=== PATIENT | female | born 1935 | race Caucasian/White ===

== ENCOUNTER 2016-04-17 12:30 | Outpatient (RCR) | payer MEDICARE, BC ==
[~2016-04-17 12:30] MED LIST: ARICEPT23 MG PO; ASPIR-LOW81 MG PO; ASPIRIN 81M81 MG/TA2 PO; ATENOLOL50 MG PO; CARDIZEM CD120 MG PO; FOSAMAX PO; LEVOTHYROXINE0.1 MG PO; NAMENDA XR 28MG PO; NORVASC 5MG5 MG/TAB PO; OSCAL 500MG/VI500 MG PO; PRAVASTATIN20 MG PO; PROTOPIC; PROVACHOL; SYNTHROID0.075 MG/T PO; SYNTHROID0.112 MG/T PO; TENEX PO; TOPROL XL 25MG25 MG PO; TRIAMCINOLONE A15 GM TP; UNABLE; VITAMIN B121000 MC2 SL; ZOLOFT 25MG25 MG PO; [UNRECOGNIZED DRUG - OTHER] PO
== END 2016-04-28 | disposition still patient (30) ==
LOC: WSST
DX: F03.90 Unspecified dementia, unspecified severity, without behavioral disturbance, psychotic disturbance, mood disturbance, and anxiety (principal)
CPT/HCPCS: G9168-GN; G9169-GN

== ENCOUNTER 2016-06-18 12:30 | Outpatient (RCR) | payer MEDICARE, BC | END 2016-06-25 10:44 | disposition home or self-care (01) | LOC: WSST 12:30 | DX: F03.90 Unspecified dementia, unspecified severity, without behavioral disturbance, psychotic disturbance, mood disturbance, and anxiety (principal) | CPT/HCPCS: G9169-GN; G9170-GN ==